=== PATIENT | male | born 1950 | race Caucasian/White ===

== ENCOUNTER 2018-10-05 16:00 | Inpatient (IN) | payer MEDICARE, BC ==
[2018-10-05] VITALS (187 sets, daily range): BP systolic 136–145; BP diastolic 68–83; PULSE 60–63; TEMP 97.4; O2SAT 84–97
[~2018-10-05] VITALS: Ht 188 cm; Wt 115.3 kg
[~2018-10-05 16:00] MED LIST: ASPIRIN 32325 MG/TAB PO; ASPIRIN 81M81 MG/TA2 PO; BACTROBAN22 TOP; BYDUREON P2 MG/0.65; BYDUREON PEN2 MG SQ; CENTRUM GARLIC300 MG PO; CIPRO 500MG TA500 MG; CIPRO 500MG TA500 MG PO; CLINDAGEL 40 ML40 ML TP; CLINDAMYCIN GEL 1%; COLACE 100100 MG/CAP PO; COQ(10)1010 MG PO; COZAAR 50MG50 MG/TAB PO; CRESTOR20 MG PO; CYMBALTA 60MG60 MG PO; DAZIDOX10 MG PO; FISH OIL 1000MG1 CAP PO; FLOMAX 0.40.4 MG/CAP PO; GLUCOTROL XL2.5 MG PO; HYZAAR 50-12.1 UDTAB PO; JANUVIA 100MG100 MG PO; K-DUR 10 MEQ T10 MEQ PO; KRILL PO; LOPID 600M600 MG/TAB PO; LYRICA 100MG C100 M1 PO; LYRICA200 MG PO; MULTIPLE VITAMI1 TAB PO; NORCO 325 MG-51 TAB PO; NORMODYNE100 MG PO; NORVASC 10MG10 MG PO; OCUVITE1 TA1 PO; PLAVIX 75MG TAB75 MG PO; PRADAXA 150MG150 MG PO; PRINZIDE 12.5 M1 TA1 PO; SYNTHROID 0.0.025 MG PO; TOPROL XL 50MG50 MG PO
[2018-10-05] MEDS ORDERED: NORVASC 10MG10 MG PO (16:43)
[2018-10-05] MEDS ORDERED: AMARYL 2MG T2 MG/TAB PO (16:43)
[2018-10-05] MEDS ORDERED: TOPROL XL100 MG PO (16:57)
[2018-10-05] MEDS ORDERED: JANUVIA 100MG100 MG PO (17:06)
[2018-10-05] MEDS ORDERED: ASPIRIN 81M81 MG/TA2 PO (17:07)
[2018-10-05 17:54] LABS: BASO % 0.1 % (0.0-2.0); GRAN # 12.8 (1.4-6.5); GRAN % 84.9 % (42.2-75.2); HEMATOCRIT 40.6 % (42.0-52.0); HEMOGLOBIN 13.8 g/dl (13.5-18.0); LYMPH # 1.1 (1.2-3.4); MEAN CELL VOLUME 84 fl (80.0-100.0); MEAN CORPUSCULAR HEMOGLOBIN 28 pg (27.0-31.0); MEAN CORPUSCULAR HGB CONC 34 g/dl (33.0-37.0); MEAN PLATELET VOLUME 10.1 fl (7.4-10.4); MONO # 1.1 (0.1-0.6); MONO % 7.5 % (1.7-9.3); PLATELET COUNT 185 K/mm3 (130-400); RED BLOOD COUNT 4.86 M/mm3 (4.20-5.60); REDCELL DISTRIBUTION WIDTH-CV 13.6 % (11.5-14.5)
[2018-10-05 17:58] LABS: PARTIAL THROMBOPLASTIN TIME 36.3 SECONDS (26.0-37.0)
[2018-10-05 18:05] LABS: ALBUMIN 3.8 gm/dL (3.5-5.0); BILIRUBIN,TOTAL 0.5 mg/dL (0.0-1.0); CALCIUM 8.8 mg/dL (8.4-10.2); CREATININE, serum 1.32 mg/dL (0.66-1.25); POTASSIUM 3.9 mmol/L (3.4-5.0); TOTAL PROTEIN 6.7 gm/dL (6.4-8.2)
[2018-10-05 18:16] LABS: TROPONIN-I 0.016 ng/mL (0.000-0.034)
[2018-10-05 20:56] LABS: INR 1.1 (0.8-3.0); PROTHROMBIN TIME 12.7 SECONDS (9.7-12.8)
[2018-10-06] VITALS (452 sets, daily range): BP systolic 132–176; BP diastolic 74–104; PULSE 63–77; TEMP 97.7–98; O2SAT 87–100
[2018-10-06 06:56] LABS: COLLECTION METHOD CLEAN CATCH
[2018-10-06 07:01] LABS: MUCOUS Present /lpf; PH 7 (5-8); SQUAMOUS EPITHELIAL None Seen /hpf; URINE APPEARANCE Clear; URINE BACTERIA Rare /hpf; URINE BILIRUBIN Negative (NEGATIVE); URINE BLOOD Negative (NEGATIVE); URINE COLOR Yellow; URINE GLUCOSE 1+ (NEGATIVE); URINE KETONE Negative (NEGATIVE); URINE LEUKOCYTE ESTERASE Negative (NEGATIVE); URINE NITRATE Negative (NEGATIVE); URINE PROTEIN(semi-quant) Negative (NEGATIVE); URINE RBC 0-2 /hpf; URINE UROBILINOGEN Negative (NEGATIVE); URINE WBC 0-2 /hpf
[2018-10-06 08:17] LABS: BASO % 0.1 % (0.0-2.0); EOS # 0.1 (0.0-0.7); EOS % 0.6 % (0-4.0); GRAN # 11.6 (1.4-6.5); GRAN % 76.1 % (42.2-75.2); HEMATOCRIT 41.9 % (42.0-52.0); HEMOGLOBIN 14.6 g/dl (13.5-18.0); LYMPH % 13.3 % (20.0-51.0); MEAN CELL VOLUME 81 fl (80.0-100.0); MEAN CORPUSCULAR HEMOGLOBIN 28 pg (27.0-31.0); MEAN CORPUSCULAR HGB CONC 35 g/dl (33.0-37.0); MEAN PLATELET VOLUME 9.8 fl (7.4-10.4); MONO # 1.4 (0.1-0.6); MONO % 9.2 % (1.7-9.3); PLATELET COUNT 191 K/mm3 (130-400); RED BLOOD COUNT 5.16 M/mm3 (4.20-5.60); REDCELL DISTRIBUTION WIDTH-CV 13.7 % (11.5-14.5)
[2018-10-06 08:50] LABS: CHOLESTEROL RISK RATIO 3.6; CREATININE, serum 1.11 mg/dL (0.66-1.25); POTASSIUM 3.5 mmol/L (3.4-5.0)
[2018-10-06] MEDS ORDERED: PRADAXA 150MG150 MG PO (09:55)
[2018-10-07 00:36] VITALS: BP 122/71; PULSE 78; TEMP 98.3
[2018-10-07 03:27] VITALS: BP 170/90; PULSE 74; TEMP 97.6
[2018-10-07 04:51] VITALS: BP 174/82
[2018-10-07 05:47] VITALS: BP 137/80
[2018-10-07 06:15] LABS: BASO % 0.3 % (0.0-2.0); EOS # 0.3 (0.0-0.7); EOS % 2.4 % (0-4.0); GRAN # 7.3 (1.4-6.5); LYMPH % 18.2 % (20.0-51.0); MEAN CELL VOLUME 84 fl (80.0-100.0); MEAN CORPUSCULAR HEMOGLOBIN 28 pg (27.0-31.0); MEAN CORPUSCULAR HGB CONC 33 g/dl (33.0-37.0); MEAN PLATELET VOLUME 9.7 fl (7.4-10.4); MONO # 1.3 (0.1-0.6); MONO % 12.1 % (1.7-9.3); PLATELET COUNT 223 K/mm3 (130-400); RED BLOOD COUNT 5.98 M/mm3 (4.20-5.60); REDCELL DISTRIBUTION WIDTH-CV 14.3 % (11.5-14.5)
[2018-10-07 06:31] LABS: HEMOGLOBIN 16.6 g/dl (13.5-18.0)
[2018-10-07 06:48] LABS: CALCIUM 9.3 mg/dL (8.4-10.2); CREATININE, serum 1.2 mg/dL (0.66-1.25); POTASSIUM 3.7 mmol/L (3.4-5.0)
[2018-10-07 07:41] VITALS: BP 128/84; PULSE 70; TEMP 97.6
[2018-10-07 11:10] VITALS: BP 142/86; PULSE 68; TEMP 97.4
[2018-10-07] MEDS ORDERED: BRILINTA90 MG PO (12:40)
[2018-10-07] MEDS ORDERED: COZAAR 50MG50 MG/TAB PO (12:41)
[2018-10-07] MEDS ORDERED: NITROSTAT0.4 MG/TAB SL (12:45)
[2018-10-07] MEDS ORDERED: PROTONIX 40MG T40 MG PO (14:10)
[2018-10-07] MEDS ORDERED: BIAXIN 500MG T500 MG PO (14:10)
[2018-10-07] MEDS ORDERED: AMOXICILLIN 50500 MG PO (14:10)
== END 2018-10-07 13:35 | disposition home or self-care (01) | DRG 287 ==
LOC: ICU 16:00 → MEDICAL 16:00
PROVIDERS: Hospitalist; Internal Medicine Interventional Cardiology; Physician Assistant
PROC: B2111ZZ Fluoroscopy of Multiple Coronary Arteries using Low Osmolar Contrast (ICD-10-PCS; principal; 2018-10-06)
PROC: 4A023N7 Measurement of Cardiac Sampling and Pressure, Left Heart, Percutaneous Approach (ICD-10-PCS; 2018-10-06)
DX: I25.110 Atherosclerotic heart disease of native coronary artery with unstable angina pectoris (principal); I48.92 Unspecified atrial flutter; E11.42 Type 2 diabetes mellitus with diabetic polyneuropathy; I10 Essential (primary) hypertension; I08.3 Combined rheumatic disorders of mitral, aortic and tricuspid valves; E78.5 Hyperlipidemia, unspecified; Z95.0 Presence of cardiac pacemaker; Z85.828 Personal history of other malignant neoplasm of skin; Z95.5 Presence of coronary angioplasty implant and graft; Z95.1 Presence of aortocoronary bypass graft; F17.210 Nicotine dependence, cigarettes, uncomplicated; I73.9 Peripheral vascular disease, unspecified; B96.81 Helicobacter pylori [H. pylori] as the cause of diseases classified elsewhere; N40.0 Benign prostatic hyperplasia without lower urinary tract symptoms
CPT/HCPCS: 99222-AI; 99232-AI; 99239; A4314; C1760; C1769; C1894; J1200; J1630; J1644; J1815; J2250; J2270; J2310; J3010; L1830; Q9967

== ENCOUNTER 2020-02-04 06:54 | Emergency (ER) | payer MEDICARE, BC ==
[~2020-02-04] VITALS: Ht 188 cm; Wt 118.2 kg
[~2020-02-04 06:54] MED LIST changes: +AMARYL 2MG T2 MG/TAB PO; +AMOXICILLIN 50500 MG PO; +BIAXIN 500MG T500 MG PO; +BRILINTA90 MG PO; +NITROSTAT0.4 MG/TAB SL; +PROTONIX 40MG T40 MG PO; +TOPROL XL100 MG PO
[2020-02-04 06:55] VITALS: TEMP 97.5
[2020-02-04] MEDS ORDERED: PROVENTIL0.09 MG/A1 IH (07:17)
[2020-02-04] MEDS ORDERED: CORDARONE200 MG/TAB PO (07:43)
[2020-02-04] MEDS ORDERED: ELIQUIS 5MG PO (07:49)
[2020-02-04] MEDS ORDERED: ASPIRIN E.C. 8181 MG PO (07:50)
[2020-02-04] MEDS ORDERED: 00186-0370-20 IH (07:55)
[2020-02-04] MEDS ORDERED: PRENATAL DHA 200 SG PO (07:56)
[2020-02-04] MEDS ORDERED: SYNTHROID0.05 MG/TA PO (07:58)
[2020-02-04] MEDS ORDERED: LINZESS145CAP PO (08:03)
[2020-02-04] MEDS ORDERED: K-DUR20 MEQ PO (08:36)
[2020-02-04] MEDS ORDERED: ROXICODONE15 MG PO (08:36)
[2020-02-04] MEDS ORDERED: PRESERVISIONLUT PO (08:38)
[2020-02-04] MEDS ORDERED: RANEXA1000 MG PO (08:39)
[2020-02-04] MEDS ORDERED: CIALIS5 MG PO (08:45)
[2020-02-04 10:16] VITALS: BP 129/65; PULSE 63
--- NOTE | 2020-02-04 11:09 | NUR ---
JUANCARLOS responded to the ED for a executive secretary social welfare consult. The patient is to be nonweight bearing on R LE and a walker or wheelchair is being recommended. The patient was inquiring about being able to use crutches. SW had PT ordered. PT recommends walker vs crutches. The patient has a walker at home. He states he would go buy a wheelchair if he feels he needs one. The patient lives at home with his and has a son in [place] and they are supportive. JUANCARLOS collaborated the above information with the ED team.
== END 2020-02-04 10:17 | disposition home or self-care (01) ==
LOC: COL.ER 06:54
DX: S82.851A Displaced trimalleolar fracture of right lower leg, initial encounter for closed fracture (principal); I10 Essential (primary) hypertension; K21.9 Gastro-esophageal reflux disease without esophagitis; E11.9 Type 2 diabetes mellitus without complications; I25.10 Atherosclerotic heart disease of native coronary artery without angina pectoris; Z95.0 Presence of cardiac pacemaker; Z79.82 Long term (current) use of aspirin; Z79.01 Long term (current) use of anticoagulants; Z79.84 Long term (current) use of oral hypoglycemic drugs; X50.1XXA Overexertion from prolonged static or awkward postures, initial encounter
CPT/HCPCS: J2704; J7030

== ENCOUNTER 2020-02-10 05:12 | Inpatient (IN) | payer MEDICARE, OTHER ==
[2020-02-10] VITALS (12 sets, daily range): BP systolic 104–132; BP diastolic 55–82; PULSE 58–68; TEMP 97.6–98.4
[~2020-02-10] VITALS: Ht 185.4 cm; Wt 125.2 kg
[~2020-02-10 05:12] MED LIST changes: +00186-0370-20 IH; +ASPIRIN E.C. 8181 MG PO; +CIALIS5 MG PO; +CORDARONE200 MG/TAB PO; +ELIQUIS 5MG PO; +K-DUR20 MEQ PO; +LINZESS145CAP PO; +PRENATAL DHA 200 SG PO; +PRESERVISIONLUT PO; +PROVENTIL0.09 MG/A1 IH; +RANEXA1000 MG PO; +ROXICODONE15 MG PO; +SYNTHROID0.05 MG/TA PO
[2020-02-10] MEDS ORDERED: KRILL OIL 3001 EACH PO (06:53)
[2020-02-10] MEDS ORDERED: LYRICA 100MG C100 M1 PO (06:58)
[2020-02-10] MEDS ORDERED: PRESERVISION1 SGL PO (06:59)
--- NOTE | 2020-02-10 12:28 | NUR ---
Patient to room via bed by PACU staff. Patient denies pain. Assessment completed. Expiratory wheezes noted. Encouraged coughing and deep breathing. Oxymask on at 5L. Patient able to move bilat toes and able to feel touching toes. Cap refill <3 seconds. Skin pink, warm, dry. Patient denies needs at this time.
[2020-02-10 13:49] LABS: BASO % 0.3 % (0.0-2.0); EOS # 0.1 (0.0-0.7); EOS % 0.8 % (0-4.0); GRAN # 6.3 (1.4-6.5); GRAN % 87.9 % (42.2-75.2); HEMATOCRIT 39.7 % (42.0-52.0); HEMOGLOBIN 13.1 g/dl (13.5-18.0); LYMPH # 0.5 (1.2-3.4); LYMPH % 6.4 % (20.0-51.0); MEAN CELL VOLUME 88 fl (80.0-100.0); MEAN CORPUSCULAR HEMOGLOBIN 29 pg (27.0-31.0); MEAN CORPUSCULAR HGB CONC 33 g/dl (33.0-37.0); MEAN PLATELET VOLUME 9.7 fl (7.4-10.4); MONO # 0.3 (0.1-0.6); MONO % 3.6 % (1.7-9.3); PLATELET COUNT 191 K/mm3 (130-400); RED BLOOD COUNT 4.53 M/mm3 (4.20-5.60); REDCELL DISTRIBUTION WIDTH-CV 13.6 % (11.5-14.5)
[2020-02-10 13:53] LABS: ALBUMIN 3.8 gm/dL (3.5-5.0); BILIRUBIN,TOTAL 0.8 mg/dL (0.0-1.0); CALCIUM 8.8 mg/dL (8.4-10.2); CREATININE, serum 1.55 (0.66-1.25); POTASSIUM 4.1 mmol/L (3.4-5.0); TOTAL PROTEIN 7.1 gm/dL (6.4-8.2)
--- NOTE | 2020-02-10 15:44 | NUR ---
Lying in bed with eyes closed. Respirations even and unlabored. Oxymask on at 5L. No signs or symptoms of discomfort ntoed.
--- NOTE | 2020-02-10 17:57 | NUR ---
Lying in bed watching TV. Denies pain. Asked patient if he needs to urinate and the patient says no. Patient says that he cannot pee on demand and it takes time for it to come back to normal. Patient explains that he had this discussion with Dr. Desouza prior to surgery that he will urinate when it happens and he does not want pressured to do it. Asked patient if his bladder feels full and the patient declines and says to give it some more time. Patient denies any further needs at this time.
--- NOTE | 2020-02-10 20:00 | NUR ---
Report received. Assumed care for overnight cashier. Assessment complete. A&Ox3. VS stable. Denies pain/nausea-tolerating PO. Dyspnea with exertion. Non-productive cough. Bilat upper lobes with wheezes insp/exp. Bases bilaterally diminished. O2@2L/NC. Dressings to bilat lower extremities-mark/splint/bulky white CDI. States he can feel touch of toes/can wiggle toes as well. Cap refill WNL. Encouraged to elevate bilat lower ext and apply ice packs provided. Verbalizes understanding. Left wrist INT flushes without difficulty. States he needs to void but cant because he has to sit on side of bed. States he cant urinate without placing feet on floor and using urinal that way. States he has been holding it for a while and really needs to go. Assisted to side of bed with instruction to put no pressure on legs/feet. Voided with legs extended heels resting on floor-450mls viviana clear urine. Denies needs. Call light in reach. Will monitor.
--- NOTE | 2020-02-11 03:10 | NUR ---
C/O pain to bilat feet-rating 7/10-described as throbbing. [place] given per dr segal. Has been comfortable all this shift until now. Denied nausea/shortness of breath-tolearing PO. IV to left wrist with NS@60ml/hr. Has had lower extremities elevated all shift-refused ice stating he couldnt feel it and it didnt help. O2 remained at 2L/NC with adequate saturations. Denies questions/concerns. Call light in reach. Will monitor.
[2020-02-11 03:13] VITALS: BP 129/75; PULSE 62; TEMP 97.9
[2020-02-11 06:38] LABS: BASO % 0.1 % (0.0-2.0); GRAN % 88.1 % (42.2-75.2); HEMATOCRIT 38.2 % (42.0-52.0); HEMOGLOBIN 12.6 g/dl (13.5-18.0); LYMPH # 0.6 (1.2-3.4); LYMPH % 5.6 % (20.0-51.0); MEAN CELL VOLUME 86 fl (80.0-100.0); MEAN CORPUSCULAR HEMOGLOBIN 28 pg (27.0-31.0); MEAN CORPUSCULAR HGB CONC 33 g/dl (33.0-37.0); MEAN PLATELET VOLUME 9.4 fl (7.4-10.4); MONO # 0.7 (0.1-0.6); MONO % 5.8 % (1.7-9.3); PLATELET COUNT 210 K/mm3 (130-400); RED BLOOD COUNT 4.44 M/mm3 (4.20-5.60); REDCELL DISTRIBUTION WIDTH-CV 13.2 % (11.5-14.5)
[2020-02-11 06:53] LABS: CALCIUM 8.9 mg/dL (8.4-10.2); CREATININE, serum 1.45 (0.66-1.25); POTASSIUM 4.1 mmol/L (3.4-5.0)
[2020-02-11 07:25] VITALS: BP 143/70; PULSE 63; TEMP 97.6
--- NOTE | 2020-02-11 11:51 | NUR ---
SW met with the patient to discuss discharge plan. The patient lives in [place] with his , Abigail (ph#[phone]). He reports independence with ADLs and has four canes, a four wheeled walker, and wheelchair. The patient's PCP is Dr. Julio Jacobson and he receives his medications at [facility] in [place]. He reports no difficulties obtaining his meds. The patient does not have advanced directives in EMR, but he states that he does have them completed and at home. He states that his is his DPOA-HC. The patient had a right trimalleolar ankle fracture and left lateral malleolus fracture. The [place] doctor is recommeding placement. PT/OT worked with the patient and are recommending post-acute rehab vs home with family assistance. SW discussed this with the patient. The patient reports that he would prefer to return home with home health, but is open to whatever his prefers. SW contacted he patient's , Abigail, to update and to discuss post-acute rehab. Abigail reports that she is in agreeance with the doctor and the therapists recommendations. She reports that she is not strong enough to help the patient with transfers at home and would need help. SW met with the patient and had the patient's on speaker phone. The patient was supportive of his 's opinion. JUANCARLOS reviewed Medicare.gov's list of SNFs in the [place] area. The patient and his chose 1) [facility] 2) [facility]. JUANCARLOS consulted [facility] Director, Magy. JUANCARLOS contacted and faxed a referral to Belen at [facility]. SW awaiting their screens. The patient is to return back to the operating room on Friday, 02/13. SW to continue to follow.
[2020-02-11 12:23] VITALS: BP 134/61; PULSE 60; TEMP 97.9
--- NOTE | 2020-02-11 14:09 | NUR ---
First visit from the growth hacker. Nps prayed with patient per request. No other needs right now.
--- NOTE | 2020-02-11 16:05 | NUR ---
Belen, at [facility], reports that they are good to continue to follow the patient. Belen reports that they will needs updates after the patient's procedure on Friday and will need to know if the patient will be non weight bearing or weight bearing. SW to continue to follow.
[2020-02-11 17:24] VITALS: BP 143/70; PULSE 62; TEMP 97.9
--- NOTE | 2020-02-11 17:54 | NUR ---
Patient has been doing well today. He got up to the wheel chair with PT. He sat up in the wheel chair most the day. No complaints of pain or nausea today. He is aware he is going back to surgery Friday. He is tolerating diet well. His glucose checks have been high, his januvia was restarted. No other changes at this time. Call light within reach.
--- NOTE | 2020-02-11 19:00 | NUR ---
BEDSIDE SHIFT REPORT FROM ASRA HURLEY RN. PT SITTING ON SIDE OF BED. FEET HANGING ITH GRAVITY. PT C/O PAIN AND THROBBING BLE. ENC TO ELEVATE. SEE MAR FOR PAIN MED GIVEN. TELE- PACED. PT HUMOROUS. SEE MAR FOR SSI. PROVIDED HS SNACK. VOIDING PER URINAL W/O DIFFICULTY. CALL LIGHT IN REACH. BED ALARM SET.
[2020-02-11 19:20] VITALS: BP 150/64; PULSE 59; TEMP 98
[2020-02-11 23:44] VITALS: BP 135/56; PULSE 59; TEMP 97.9
--- NOTE | 2020-02-12 03:44 | NUR ---
SITTING ON SIDE OF BED. JUST USED URINAL. NO NEEDS AT THIS TIME.
[2020-02-12 04:37] VITALS: BP 151/69; PULSE 64; TEMP 98
[2020-02-12 06:29] LABS: BASO % 0.1 % (0.0-2.0); EOS % 0.1 % (0-4.0); GRAN % 77.7 % (42.2-75.2); HEMOGLOBIN 12.3 g/dl (13.5-18.0); LYMPH # 1.3 (1.2-3.4); LYMPH % 12.1 % (20.0-51.0); MEAN CELL VOLUME 86 fl (80.0-100.0); MEAN CORPUSCULAR HEMOGLOBIN 29 pg (27.0-31.0); MEAN CORPUSCULAR HGB CONC 33 g/dl (33.0-37.0); MEAN PLATELET VOLUME 9.6 fl (7.4-10.4); MONO % 9.4 % (1.7-9.3); PLATELET COUNT 234 K/mm3 (130-400); RED BLOOD COUNT 4.28 M/mm3 (4.20-5.60); REDCELL DISTRIBUTION WIDTH-CV 13.4 % (11.5-14.5)
--- NOTE | 2020-02-12 06:34 | NUR ---
SEE MAR FOR PAIN MED BLE THROBBING. FEET ELEVATED. NO DISTRESS.
[2020-02-12 06:49] LABS: CALCIUM 8.5 mg/dL (8.4-10.2); CREATININE, serum 1.17 (0.66-1.25)
[2020-02-12 07:23] VITALS: BP 149/71; PULSE 66; TEMP 98.4
[2020-02-12 07:48] VITALS: BP 132/37; PULSE 63; TEMP 98.6
--- NOTE | 2020-02-12 09:58 | NUR ---
PT IS A&O*3. VSS. DENIES PAIN, REPORTS ITS CONTROLLED AT REST. PT HAD LLE ORIF ON 02/09, UNABLE TO DO SURGERY TO RLE DUE TO BLISTERING. RLE SX SCHEDULED FOR FRIDAY. PT HAS SPLINT TETE WRAP ON BLE. PT IS ABLE TO WRIGGLE BOTH TOES. SPLINT TETE WRAP CDI. PT'S BLE ELEVATED WITH SEVERAL PILLOWS TO PREVENT SWELLING. PT HAS WHEEZING ON ALL 4 LOBES, CRACKLES ON BOTH BASES. PT EATING WELL. PT USES URINAL. PT HAS IV ON LEFT WRIST TO INT. CALL LIGHT WITHIN REACH.
[2020-02-12 11:55] VITALS: BP 171/77; PULSE 58; TEMP 98.4
[2020-02-12 16:00] VITALS: BP 151/68; PULSE 60; TEMP 97.8
--- NOTE | 2020-02-12 20:35 | NUR ---
Pt. sitting up at bedside at this time. Pt. is A&OX3, assessment complete. INT to lt. wrist patent. Dressings to BLE CDI. Pt. reported pain at a 5 on pain scale, gave pain meds per orders. Pt. denies further needs, call light within reach.
[2020-02-12 20:40] VITALS: BP 165/79; PULSE 62
[2020-02-13 05:41] VITALS: BP 154/73; PULSE 93; TEMP 98
[2020-02-13 09:31] VITALS: BP 154/72; PULSE 63; TEMP 98
--- NOTE | 2020-02-13 09:37 | NUR ---
Patient sitting up at edge of bed, alert & oriented. Voiding frequently, uses urinal. Ortho rounded. Patient really encouraged to keep feet elevated today. Multiple pillows provided. Ice packs provided. Patient able to wiggle toes. Dressing & splints to Ble Cdi. He tolerated breakfast, will be NPo at midnight & am dose of lovenox to be held for anticipation of Or. Int. Will montior. Student nurse Antolin to assist with cares. Assessment reviewed & agreed
--- NOTE | 2020-02-13 11:47 | NUR ---
Patient sitting up eating lunch. Insulin per scale. Reports pain in his heels. he has had heels resting on ice packs & pillows. Will continue to monitor.
[2020-02-13 12:00] VITALS: BP 153/69; PULSE 62; TEMP 97.9
--- NOTE | 2020-02-13 17:47 | NUR ---
Patietn sitting up eating dinner, Insulin per scale-reviewed with him elevated sugars may be due to predisone & stress. He continues to elevate. Voiding frequently. Awating K+ redraw per protcol
[2020-02-13 19:59] VITALS: BP 159/67; PULSE 60; TEMP 98
--- NOTE | 2020-02-13 21:30 | NUR ---
Last dose of Potassium replacement given for K+=3.7. Takes HS meds as well. Is alert and oriented x4. Has SL to left wrist, flushes well. Lungs diminished, clear. Telemetry VPaced. Voiding per urinal, yellow urine. Has bilateral lower leg splints on with reported tingling of toes. Will be NPO after midnight for surgery in AM. Denies need for pain meds at this time.
[2020-02-14] VITALS (12 sets, daily range): BP systolic 128–169; BP diastolic 63–83; PULSE 60–87; TEMP 97.9–98.6
--- NOTE | 2020-02-14 00:29 | NUR ---
REPORTS BILATERAL LOWER LEG PAIN, NORCO 7.5MG 2 TABS GIVEN AT THIS TIME. IS NOW NPO.
--- NOTE | 2020-02-14 03:00 | NUR ---
Awake, uses urinal without problem. No concerns voiced at this time.
--- NOTE | 2020-02-14 06:00 | NUR ---
Started surgical fluids to patent left wrist, infusing without problem. Is NPO, ready for surgery.
--- NOTE | 2020-02-14 06:50 | NUR ---
To OR per bed.
[2020-02-14 07:21] LABS: HEMATOCRIT 42.1 % (42.0-52.0); HEMOGLOBIN 14.1 g/dl (13.5-18.0); MEAN CELL VOLUME 85 fl (80.0-100.0); MEAN CORPUSCULAR HEMOGLOBIN 29 pg (27.0-31.0); MEAN CORPUSCULAR HGB CONC 34 g/dl (33.0-37.0); MEAN PLATELET VOLUME 9.8 fl (7.4-10.4); PLATELET COUNT 264 K/mm3 (130-400); RED BLOOD COUNT 4.93 M/mm3 (4.20-5.60); REDCELL DISTRIBUTION WIDTH-CV 13.2 % (11.5-14.5)
[2020-02-14 07:36] LABS: CALCIUM 8.2 mg/dL (8.4-10.2); CREATININE, serum 1.06 (0.66-1.25)
[2020-02-14 07:37] LABS: POTASSIUM 2.7 mmol/L (3.4-5.0)
--- NOTE | 2020-02-14 08:08 | NUR ---
Returns from procedural area at this time.
[2020-02-14 08:53] LABS: BAND 1 % (0-10); EOSINOPHIL 4 % (0-4); NEUTROPHILS 61 % (42.0-75.2); PLATELET ESTIMATE NORMAL (NORMAL)
[2020-02-14 08:54] LABS: LYMPHOCYTE 27 % (20.0-51.0)
--- NOTE | 2020-02-14 10:29 | NUR ---
Patient alert and oriented, answers questions appropriately. See assessment. BLE with hard splint/TETE in place. No drainage noted to dressings. NWB BLE. No c/o at this time.
--- NOTE | 2020-02-14 10:46 | NUR ---
JUANCARLOS met with the patient to follow up after the weekend and to update on the referrals. The patient reports that this weekend was boring. He had no other questions or concerns for JUANCARLOS. The patient went back to the OR this morning for repeat I&D right ankle fracture blisters and repeat CR/splinting. They were unable to complete, due to continued blistering. They plan on having the patient return back to the OR this coming Friday for definitive fixation. JUANCARLOS notified and faxed updates to Belen at [facility]. JUANCARLOS still awaiting screens.
--- NOTE | 2020-02-14 20:00 | NUR ---
Report received. 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 Assessment complete. VS stable. A&Ox3. Denies pain/shortness of breath/nausea. Sitting up in bed watching TV using IS. Plan of care discussed for this shift to include finishing potassium admin/recheck potassium level. Verbalizes understanding. Potassium infusing at 75mls/hr due to irritation/pain. Left lower extremity with splint/mark-CDI. CMS WNL. RIght lower extremity with mark/bulky white dressing-CDI. CMS WNL. Encouraged to continue elevating extremities bilat. Verbalizes understanding. Denies needs. Call light in reach. Will monitor.
--- NOTE | 2020-02-14 21:50 | NUR ---
Last dose of potassium replacement-K=2.7- infused at this time. Potassium lab ordered in computer for 99. Denies needs. Call light in reach. Will monitor.
[2020-02-15] VITALS: BP 149/81; PULSE 60; TEMP 98.1
[2020-02-15 03:14] VITALS: BP 139/86; PULSE 63; TEMP 97.8
--- NOTE | 2020-02-15 05:00 | NUR ---
Rested off and on this shift. Denied pain needing intervention. Ice pack PRN. Bilat lower extremities remanined elevated on pillows. Voiding without difficulty/+flatus. Tolerating PO. Potassium protocol for K=3.4. O2 sat > 94% on room air. Call light in reach. Will monitor.
[2020-02-15 07:17] LABS: HEMATOCRIT 43.3 % (42.0-52.0); HEMOGLOBIN 14.5 g/dl (13.5-18.0); MEAN CELL VOLUME 85 fl (80.0-100.0); MEAN CORPUSCULAR HEMOGLOBIN 28 pg (27.0-31.0); MEAN CORPUSCULAR HGB CONC 34 g/dl (33.0-37.0); MEAN PLATELET VOLUME 9.4 fl (7.4-10.4); PLATELET COUNT 265 K/mm3 (130-400); RED BLOOD COUNT 5.11 M/mm3 (4.20-5.60); REDCELL DISTRIBUTION WIDTH-CV 13.1 % (11.5-14.5)
[2020-02-15 07:35] LABS: CALCIUM 8.8 mg/dL (8.4-10.2); CREATININE, serum 1.1 (0.66-1.25); POTASSIUM 3.3 mmol/L (3.4-5.0)
[2020-02-15 07:57] VITALS: BP 149/82; PULSE 61; TEMP 97.7
[2020-02-15 08:57] LABS: EOSINOPHIL 4 % (0-4); LYMPHOCYTE 24 % (20.0-51.0); NEUTROPHILS 66 % (42.0-75.2); NUCLEATED RED BLOOD CELL 1 (0-6); PLATELET ESTIMATE NORMAL (NORMAL)
--- NOTE | 2020-02-15 14:03 | NUR ---
JUANCARLOS contacted and faxed updates to Belen at [facility]. SW to continue to follow.
[2020-02-15 16:00] VITALS: BP 149/73; PULSE 64; TEMP 98.1
[2020-02-15 19:37] VITALS: BP 146/63; PULSE 69; TEMP 97.7
[2020-02-16] VITALS (7 sets, daily range): BP systolic 103–167; BP diastolic 65–88; PULSE 60–77; TEMP 97.4–98.3
--- NOTE | 2020-02-16 03:40 | NUR ---
Patient has rested well throughout the night. Bilateral dressings clean, dry, and intact. Patient has kept legs elevated throughout the night. Cap refill to toes <3 seconds. Able to wiggle toes on left foot easily, but states he has difficulty doing this on the right side. Patient states he has a hard time feeling my hands, but this is pretty normal for him. PICC to XIOMY flushes easily. Patient denies pain. Vital signs stable. Denies any further needs. Will continue to monitor.
[2020-02-16 07:05] LABS: CALCIUM 8.9 mg/dL (8.4-10.2); CREATININE, serum 1.08 (0.66-1.25); MAGNESIUM 1.8 mg/dL (1.6-2.3)
--- NOTE | 2020-02-16 14:50 | NUR ---
Magy, [facility] Director reports they cannot accept the patient at this time.
--- NOTE | 2020-02-16 14:51 | NUR ---
JUANCARLOS faxed updates to Belen at [facility].
--- NOTE | 2020-02-16 16:02 | NUR ---
JUANCARLOS met with the patient to discuss the discharge plan. JUANCARLOS contacted the patient's , Abigail and had her on speaker phone. JUANCARLOS informed them that [facility] cannot accept him for post acute rehab. JUANCARLOS would like to have a second choice. If post acute rehab is needed the second choice is [facility]. JUANCARLOS faxed referral. Belen from [facility] reports they cannot accept the patient for a skilled stay due to non-weight bearing status. Belen reports they could take the patient if it was a private pay if the patient's was needing some extra care before going home. Belen to contact the patient's . JUANCARLOS informed patient's . JUANCARLOS then discussed Medicare.gov's list of agencies that serve the [place] area in case [facility] could not accept. The patient's chose [facility]. JUANCARLOS faxed referral. Awaiting response. Will continue to monitor.
--- NOTE | 2020-02-16 18:22 | NUR ---
Patient currently resting in bed with feet elevated at this time. Patient continues to deny pain in bilateral feet/ankles. Dressings to both feet appear to be CDI. Patient remains alert and oriented, answers questions appropriately. Patient denies needs at this time, call light within reach.
--- NOTE | 2020-02-16 20:51 | NUR ---
Pt. sitting up at bedside. Pt. is A&OX3, assessment complete. PICC to rt. upper arm patent. Dressings to ble CDI. Pt. denies pain or other needs, call light within reach.
[2020-02-17 05:26] VITALS: BP 112/84; PULSE 74; TEMP 97.8
--- NOTE | 2020-02-17 08:30 | NUR ---
Patient sitting on edge of bed. Took vital signs and administered meds. Patient reports no pain. Dressings to bitlateral extremities were clean and intact. PICC line to XIOMY. No further needs at this time.
[2020-02-17 09:21] VITALS: BP 126/78; PULSE 59; TEMP 97.6
[2020-02-17 12:55] VITALS: BP 114/77; PULSE 66; TEMP 98.3
--- NOTE | 2020-02-17 12:56 | NUR ---
JUANCARLOS contacted the patient's , Abigail to inquire about the patient's wheelchair and showerchair and the ability for him to use them with his non-weighbearing status. The wheelchair's arms come off and the shower chair has no arms. Richard from [facility] is still looking at the referral. Rosalina from [facility] reports they can take the patient for home health services. Will continue to monitor.
[2020-02-17 16:57] VITALS: BP 146/74; PULSE 61; TEMP 97.5
--- NOTE | 2020-02-17 17:41 | NUR ---
Patient had done well throughout the day, minimal needs. Up to comode with stand by assist, patient transfered independently. Dressings maintained to [facility], are CDI. Denies pain. PICC line to XIOMY without complications. Denies further needs at this time. Will report off to wine cellar worker.
--- NOTE | 2020-02-17 20:45 | NUR ---
Pt sitting at edge of bed. Is alert and oriented x3. Has PICC to right upper arm. Has bilateral lower leg splints with drsgs on, D/I. Is to be NPO after midnight for possible ORIF of right ankle, pt aware. Takes HS meds without problem. Snack given.
[2020-02-17 20:54] VITALS: BP 162/71; PULSE 63; TEMP 97.5
[2020-02-18] VITALS (11 sets, daily range): BP systolic 131–164; BP diastolic 66–88; PULSE 59–75; TEMP 97–98.4
--- NOTE | 2020-02-18 02:00 | NUR ---
PT RESTING WELL. IS NPO FOR SURGERY THIS AM.
--- NOTE | 2020-02-18 06:00 | NUR ---
PT [id number] THIS AM. SADIE PROVIDED. IVF INITIATED FOR SURGERY.
--- NOTE | 2020-02-18 06:45 | NUR ---
TO SURGERY PER BED.
--- NOTE | 2020-02-18 11:14 | NUR ---
PT contacted JUANCARLOS to inform her that the patient needed a sliding board. SW contacted the patient's regarding a sliding board that will be needed. The patient's , Abigail was agreeable to getting a sliding board delivered from [facility]. Abigail called [facility] to pay for it and it was delivered. JUANCARLOS also discussed with Abigail about sending a referral to a second choice due to the patient's non-weighbearing status. Another referral was sent to [facility]. The patient may qualify for a break in stay. The family will have to private pay until the patient is skillable. Richard from [facility] reports the daily rate at [facility] is $239 a day. Zbigniew from [facility] reports the daily rate is $250 a day. JUANCARLOS communicated this with Abigail. JUANCARLOS and Abigali discussed these options with the patient via speaker phone. The son was also on the line. The patient understood he needed some extra help and Dr. Desouza is recommending the patient not go home. JUANCARLOS also sent a referral to [facility] in [place]. Awaiting responses.
--- NOTE | 2020-02-18 15:44 | NUR ---
Harper from [facility] reports they can accept the patient but it not until Friday.
--- NOTE | 2020-02-18 15:58 | NUR ---
Zbigniew from [facility] report they can take the patient clinically, so it is a tentative, yes. He will check insurance then he will give a solid yes.
--- NOTE | 2020-02-18 16:49 | NUR ---
JUANCARLOS contacted Zbigniew from [facility] to inquire about the placement and insurance coverage. Zbigniew reports due to the patient's LOS at the hospital he would be skillable for 7-14 days. But due to his nonweight bearing status, after those 7-14 days the patient would have to private pay until he was skillable again. JUANCARLOS met with the patient and the patient's , Abigail (via telephone) to discuss this. The patient is adamant about not wanting to private pay at all. The patient states his daughter will visit soon and he will have plenty of support. JUANCARLOS informed the patient about the physicans concern about going home. The patient understood but still wants to go home. Abigail also spoke to the patient but she states it is his choice. The patient has a wheelchair, shower bench, and shower chair. The patient had sliding board delivered this day. The patient wants to go home with home health. Abigail was agreeable to this. JUANCARLOS informed the patient and Abigail that if they got home and decided they needed to go to a facility they should contact social media content manager and we could assist. JUANCARLOS gave Abigail the weekend social media content manager contact information. After the meeting JUANCARLOS contacted Rosalina at [facility] about the patient's tentatively discharging 02/18. She was okay to take him on for services. Will continue to monitor.
--- NOTE | 2020-02-18 17:55 | NUR ---
Patient resting in bed. Feet elevated & iced. splint dressing clean dry & intact bilaterally. Cms intact. Patient has done very well post op. He has denied pain. He has tolerated diet. Insulin per orders. voiding adequatly. Picc to Int. Vitals stable on room air. K+ was replaced. professor of social work assisted with discharge planning. assisting with plans.
--- NOTE | 2020-02-18 20:00 | NUR ---
Report received. Assumed care for night shift supervisor. Assessment complete. VS stable. A&Ox3. Sitting up in bed watching TV. C/O pain to bilat feet/toes-rating pain 6/10 on pain scale described as burning. [place] given per dr order. Denies shortness of breath/nausea. PICC to right upper arm flushes without difficulty. Bilat lower extremity mark/splint/dressing CDI. Elevated on pillows with fresh ice pack. Voiding without difficulty. Plan of care discussed for pain control/calling for needs. Verbalizes understanding. Call light in reach. Will monitor.
[2020-02-19 00:37] VITALS: BP 158/72; PULSE 71; TEMP 98.1
--- NOTE | 2020-02-19 02:00 | NUR ---
Rested well this shift. Received [place] for pain x1 with adequate pain control. Denies nausea/shortness of breath. VS remained stable. Tolerating PO. Voiding without difficulty. +Flatus. PICC to right upper arm flushes without difficulty. Dressing to bilat lower [id number]/splint/white gauze. Denies needs. Call light in erach. Will monitor.
[2020-02-19 04:15] VITALS: BP 158/73; PULSE 67; TEMP 98.2
[2020-02-19 07:52] VITALS: BP 148/65; PULSE 71; TEMP 97.9
--- NOTE | 2020-02-19 08:00 | NUR ---
Patient in bed resting. Alert and oriented x3. Assessment complete. BLE elevated on pillows with ice. Eduard wrap to BLE are CDI. PICC line to XIOMY without complications. Denies pain or further needs at this time.
[2020-02-19] MEDS ORDERED: TOPROL XL 50MG50 MG PO (10:50)
[2020-02-19 11:27] VITALS: BP 133/72; PULSE 74; TEMP 98.4
--- NOTE | 2020-02-19 11:48 | NUR ---
Carlos Alberto Martin states he is from [facility], josé miguel #[phone] - [phone] called re patient. States he has recieved multiple calls from patient family and friends with concerns about patient discharging home today and being unable to care for self at home. Transfered to case management.
--- NOTE | 2020-02-19 11:49 | NUR ---
SW intercepted called from Carlos Alberto Martin Officer of [facility] [phone]. #0. Mario Called because family is concerned that the patient is not able to make decision on coming home. Eudcated officer on [place] and the rights of the patient.
--- NOTE | 2020-02-19 12:36 | NUR ---
JUANCARLOS rece notification of DC, Faxed Dc orders to [facility] and made contact with [facility] for DC fax. . Nothing follows.
--- NOTE | 2020-02-19 13:45 | NUR ---
Discharge education provided to patient. Educated on follow up appointments and when to call provider. Educated on med changes. Reinforced teaching on weight bearing status. Patient verbalized understanding. All questions answered. Patient out by wheelchair. PICC line out by medical charge nurse.
== END 2020-02-19 13:45 | disposition home or self-care (01) | DRG 492 ==
LOC: SDCO 05:12 → SURG 11:42
PROVIDERS: Hospitalist; Nurse Practitioner Family; Physician Assistant; Student in an Organized Health Care Education/Training Program; ADMIT Orthopaedic Surgery
PROC: 0SSG0ZZ Reposition Left Ankle Joint, Open Approach (ICD-10-PCS; 2020-02-10 09:30)
PROC: 2W3QX1Z Immobilization of Right Lower Leg using Splint (ICD-10-PCS; 2020-02-14)
PROC: 02HV33Z Insertion of Infusion Device into Superior Vena Cava, Percutaneous Approach (ICD-10-PCS; 2020-02-15)
PROC: 0QSG04Z Reposition Right Tibia with Internal Fixation Device, Open Approach (ICD-10-PCS; 2020-02-18)
PROC: 0QSJ04Z Reposition Right Fibula with Internal Fixation Device, Open Approach (ICD-10-PCS; principal; 2020-02-18 07:30)
DX: S82.851A Displaced trimalleolar fracture of right lower leg, initial encounter for closed fracture (principal); J18.9 Pneumonia, unspecified organism; J96.01 Acute respiratory failure with hypoxia; N17.9 Acute kidney failure, unspecified; J44.0 Chronic obstructive pulmonary disease with (acute) lower respiratory infection; S82.62XA Displaced fracture of lateral malleolus of left fibula, initial encounter for closed fracture; W18.30XA Fall on same level, unspecified, initial encounter; I25.10 Atherosclerotic heart disease of native coronary artery without angina pectoris; I73.9 Peripheral vascular disease, unspecified; E03.9 Hypothyroidism, unspecified; F17.200 Nicotine dependence, unspecified, uncomplicated; E11.40 Type 2 diabetes mellitus with diabetic neuropathy, unspecified; E78.5 Hyperlipidemia, unspecified; N40.0 Benign prostatic hyperplasia without lower urinary tract symptoms; I12.9 Hypertensive chronic kidney disease with stage 1 through stage 4 chronic kidney disease, or unspecified chronic kidney disease; N18.9 Chronic kidney disease, unspecified; E11.22 Type 2 diabetes mellitus with diabetic chronic kidney disease; J44.9 Chronic obstructive pulmonary disease, unspecified; S82.852A Displaced trimalleolar fracture of left lower leg, initial encounter for closed fracture; R00.1 Bradycardia, unspecified; E11.65 Type 2 diabetes mellitus with hyperglycemia; E87.6 Hypokalemia; Z95.0 Presence of cardiac pacemaker; Y92.029 Unspecified place in mobile home as the place of occurrence of the external cause; Z95.1 Presence of aortocoronary bypass graft
CPT/HCPCS: 99223; 99232-AI; 99233-AI; A4216; A9284; C1713; C1751; J0690; J0696; J1650; J1815; J2250; J2405; J2704; J2795; J3010; J3480; J7030; J7120; J7512

== ENCOUNTER 2020-03-02 12:00 | Inpatient (IN) | payer MEDICARE, BC ==
[~2020-03-02] VITALS: Ht 185.4 cm; Wt 114.0 kg
[~2020-03-02 12:00] MED LIST changes: +KRILL OIL 3001 EACH PO; +PRESERVISION1 SGL PO
[2020-03-02 16:45] LABS: HEMATOCRIT 38.3 % (42.0-52.0); HEMOGLOBIN 12.7 g/dl (13.5-18.0); MEAN CELL VOLUME 83 fl (80.0-100.0); MEAN CORPUSCULAR HEMOGLOBIN 28 pg (27.0-31.0); MEAN CORPUSCULAR HGB CONC 33 g/dl (33.0-37.0); PLATELET COUNT 407 K/mm3 (130-400); RED BLOOD COUNT 4.59 M/mm3 (4.20-5.60); REDCELL DISTRIBUTION WIDTH-CV 13.8 % (11.5-14.5)
[2020-03-02 16:50] LABS: INR 1.6 (0.8-3.0)
[2020-03-02 16:54] LABS: ALBUMIN 3.7 gm/dL (3.5-5.0); BILIRUBIN,TOTAL 0.4 mg/dL (0.0-1.0); CALCIUM 9.5 mg/dL (8.4-10.2); CREATININE, serum 1.23 (0.66-1.25); POTASSIUM 3.3 mmol/L (3.4-5.0); TOTAL PROTEIN 7.4 gm/dL (6.4-8.2)
[2020-03-02 17:27] LABS: EOSINOPHIL 3 % (0-4); LYMPHOCYTE 17 % (20.0-51.0); METAMYELOCYTE 1 % (0-0); MYELOCYTE 2 % (0-0); NEUTROPHILS 72 % (42.0-75.2)
[2020-03-02 17:28] LABS: ANISOCYTOSIS 1+; PLATELET ESTIMATE DECREASED (NORMAL); POIKILOCYTOSIS 1+
[2020-03-02 17:53] VITALS: BP 152/74; PULSE 60; TEMP 97.6
== END 2020-03-02 18:00 | disposition short-term general hospital (02) | DRG 921 ==
LOC: SURG 12:00 → MEDICAL 15:53
PROVIDERS: ADMIT Orthopaedic Surgery
DX: T81.31XA Disruption of external operation (surgical) wound, not elsewhere classified, initial encounter (principal); S82.61XD Displaced fracture of lateral malleolus of right fibula, subsequent encounter for closed fracture with routine healing; S82.51XD Displaced fracture of medial malleolus of right tibia, subsequent encounter for closed fracture with routine healing; J44.9 Chronic obstructive pulmonary disease, unspecified; I10 Essential (primary) hypertension; I25.10 Atherosclerotic heart disease of native coronary artery without angina pectoris; E11.40 Type 2 diabetes mellitus with diabetic neuropathy, unspecified; E11.51 Type 2 diabetes mellitus with diabetic peripheral angiopathy without gangrene; E03.9 Hypothyroidism, unspecified; N40.0 Benign prostatic hyperplasia without lower urinary tract symptoms; E87.6 Hypokalemia; H54.7 Unspecified visual loss; E78.5 Hyperlipidemia, unspecified; X58.XXXD Exposure to other specified factors, subsequent encounter; F17.210 Nicotine dependence, cigarettes, uncomplicated; Z79.82 Long term (current) use of aspirin; Z79.01 Long term (current) use of anticoagulants; Z79.891 Long term (current) use of opiate analgesic; Z90.5 Acquired absence of kidney; Z95.0 Presence of cardiac pacemaker; Z88.5 Allergy status to narcotic agent
CPT/HCPCS: 99221